=== PATIENT | female | born 1995 | race Caucasian/White ===

== ENCOUNTER 2017-08-06 13:44 | Inpatient (IN) | payer OTHER ==
[2017-08-06] MEDS ORDERED: Ibuprofen 800 MG TAB PO PRN (23:23)
[2017-08-06] MEDS ORDERED: Carboprost 250 MCG/ML AMP IM PRN (23:23)
[2017-08-06] MEDS ORDERED: Zolpidem Tartrate 5 MG TAB PO PRN (23:23)
[2017-08-06] MEDS ORDERED: HYDROcodone/Acetaminophen 5/325 mg Tablet PO PRN (23:23)
[2017-08-06] MEDS ORDERED: Acetaminophen 500 MG TAB PO PRN (23:23)
[2017-08-06] MEDS ORDERED: Misoprostol 200 MCG TAB PR PRN (23:23)
[2017-08-06] MEDS ORDERED: Lidocaine 1% (PF) 30 ML VIAL SC PRN (23:23)
[2017-08-06] MEDS ORDERED: Ondansetron HCl/PF 4 MG/2 ML Vial IVP PRN (23:23)
[2017-08-06] MEDS ORDERED: Diphenoxylate HCl/Atropine Tablet PO PRN (23:23)
[2017-08-06] MEDS ORDERED: Promethazine HCl 25 MG/ML VIAL IM PRN (23:23)
[2017-08-06 23:47] VITALS: BMI 30.7
[2017-08-06] MEDS: Lactated Ringer's 1,000 ML IV SCH (23:57)
[2017-08-07 01:03] LABS: Hematocrit 35.8 % (36.0-47.0); Mean Platelet Volume 8.6 fL (7.4-10.4); Red Blood Cell (RBC) Count 4.08 mill/uL (4.20-5.40); White Blood Cell (WBC) Count 9.6 thou/uL (4.8-10.8)
[2017-08-07] MEDS: LR 500 ML/Oxytocin 10 units 500 ML IV SCH ×2 (04:07→15:54)
[2017-08-07] MEDS: Lactated Ringer's 1,000 ML IV SCH ×3 (05:09→14:23)
--- NOTE | 2017-08-07 08:23 | PDOC.LDHP ---
Labor and Delivery H&P Chief complaint: scheduled induction HPI: 22yo at 40w3d by LMP here for elective IOL. Some slight pain with ctx, plans epidural Current gestational age (weeks): 40 Due date: 08/04/17 Dating criteria: last menstrual period Grav: 1 Para: 0 Current complications: none Abnormal US findings: No Past Medical History: denies Current medications: pre-sarita vitamins Previous surgical history: none Allergies/Adverse Reactions: Allergies Allergy/AdvReac Type Severity Reaction Status Date / Time No Known Allergies Allergy Verified 08/06/17 23:43 Social history: none - Physical Exam Vital signs reviewed and normal: yes General: NAD Heart: RRR Lungs: CTAB Abdomen: gravid Extremeties: no edema FHT: category 1 [place] contractions every: q3min - Vaginal Exam cm dilated: 3 Effacement: 90% Station: -2 - OB Labs Blood type: O RH: positive HIV: negative RPR: negative HEPSAg: negative 1 hour GCT: negative GBS: negative Additional Labs: RubImm - Assessment L&D Assessment: elective induction at term - Plan Plan: admit to L&D, labor augmentation if indicated, informed consent obtained, anesthesia consult for pain management
[2017-08-07] MEDS ORDERED: Fentanyl 4 mcg/Marc 0.1% Cadd 100 ML ONE (11:17)
[2017-08-07] MEDS ORDERED: diphenhydrAMINE HCl 50 MG/ML 1 ML VIAL IVP PRN (11:54)
[2017-08-07] MEDS ORDERED: Naloxone HCl 0.4 mg/ml Vial IVP PRN ×2 (11:54)
[2017-08-07] MEDS ORDERED: ePHEDrine/0.9% NaCl/PF SYRINGE 50 mg/10 ml SLOW IVP PRN (11:54)
[2017-08-07] MEDS ORDERED: Lactated Ringer's 500 ML IV PRN (11:54)
[2017-08-07] MEDS ORDERED: Acetaminophen 325 MG TAB PO PRN (11:54)
[2017-08-07] MEDS ORDERED: Ondansetron HCl/PF 4 MG/2 ML Vial IVP PRN ×2 (11:54→22:02)
[2017-08-07] MEDS ORDERED: Promethazine HCl 25 MG/ML VIAL IM PRN (11:54)
[2017-08-07] MEDS ORDERED: Eucerin (Mineral Oil/Petrolatum,White) 30 gm Jar TOP PRN (11:54)
[2017-08-07] MEDS: Misoprostol 100 MCG TAB VAG SCH ×3 (11:57→15:54)
[2017-08-07] MEDS ORDERED: Communication Order-Pharmacy FS SCH (12:00)
[2017-08-07] MEDS ORDERED: Fentanyl 4mcg/Marcaine 0.1% Cassette 100 ML EPIDURAL SCH (12:00)
[2017-08-07] MEDS ORDERED: Misoprostol 200 MCG TAB ONE (19:17)
[2017-08-07] MEDS: LR / Pitocin 40 units/1000 ml 1,000 ML IV PRN ×2 (19:19→22:17)
[2017-08-07] MEDS ORDERED: Milk Of Magnesia 30 ML UDCUP PO PRN (22:02)
[2017-08-07] MEDS ORDERED: Bisacodyl 10 MG SUPP PR PRN (22:02)
[2017-08-07] MEDS ORDERED: Lanolin Ointment 7 GM TUBE TOP PRN (22:02)
[2017-08-07] MEDS ORDERED: Benzocaine/Menthol 20-0.5% 60 ML CAN TOP PRN (22:02)
[2017-08-07] MEDS ORDERED: diphenhydrAMINE HCl 25 MG CAP PO PRN (22:02)
[2017-08-07] MEDS ORDERED: LR / Pitocin 40 units/1000 ml 1,000 ML IV SCH (22:02)
[2017-08-07] MEDS ORDERED: HYDROcodone/Acetaminophen 5/325 mg Tablet PO PRN ×2 (22:02)
[2017-08-07] MEDS ORDERED: Preparation H Ointment 28 GM TUBE PR PRN (22:02)
--- NOTE | 2017-08-08 | PDOC.OPDEL ---
OB Operative/Delivery Note Delivery Dr/Surgeon: Krupa Assist: n/a Pre-Delivery Diagnosis: elective induction Procedure/Post Delivery Dx: spontaneous vaginal delivery Weeks gestation: 40 Anesthesia: epidural - Findings A Sex: male - 5 min: 8 - 10 min: 9 - Additional Findings/Plan Placenta delivered: spontaneous Repaired Obstetrical Laceration: periurethral (bilateral, hemostatic, unrepaired ) Estimated blood loss: 200 Compilations/Other Findings: NC x1 reduced at perineum, Anterior shoulder left shoulder did not deliver with gentle downward traction, [facility] and suprapubic by RN delivered in < 30seconds. Infant moving all extremities equally bilaterally. Atony following placental delivery, resolved with bimanual massage, pitocin and cytotec 600mcg pr. Post delivery plan: routine recovery
[2017-08-08] MEDS: Misoprostol 100 MCG TAB VAG SCH ×2 (04:18→04:19)
[2017-08-08] MEDS: Ibuprofen 800 MG TAB PO SCH ×4 (04:19→22:00)
[2017-08-08] MEDS: Docusate (Surfak) 240 MG CAP PO SCH ×3 (05:29→22:02)
--- NOTE | 2017-08-08 08:36 | PDOC.PP ---
Post Progress Note Post Day #: 1 PO intake tolerated: yes Flatus: yes Ambulation: yes Vital Signs (12 hours) Temp Pulse Resp BP 08/08/17 02:50 98.3 F 97 20 122/75 08/07/17 23:45 98.2 F 101 H 14 119/68 08/07/17 22:45 99.2 F 102 H 14 107/54 L 08/07/17 21:45 98.9 F 92 20 124/66 Weight Weight 190 lb - Physical Examination General: NAD Cardiovascular: RRR Respiratory: clear to ausculation bilateral Abdominal: no distention, appropriately TTP Fundus firm & at: umb Extremities: negative homans (B) Skin: no rash Neurological: no gross focal deficits Psychiatric: normal affect Result Diagrams: 08/06/17 23:51 Additional Labs: Post Labs Hep Bs Antigen Non-Reactive S/CO (NonReactive) 08/06/17 23:51 (1) Term delivered Code(s): O80 - ENCOUNTER FOR FULL-TERM UNCOMPLICATED DELIVERY Status: Acute - Assessment/Plan VSSAF Doing well, Pain controlled, lochia appropriate Rh pos RImm Cont PP care, home tomorrow
[2017-08-08] MEDS: Prenatal Vitamin 1 TAB PO SCH (09:25)
[2017-08-08] MEDS: Ferrous Sulfate 325 MG TAB PO SCH ×2 (09:27→18:06)
[2017-08-09] MEDS: Ibuprofen 800 MG TAB PO SCH (05:26)
[2017-08-09 08:15] VITALS: BP 113/66; TEMP 98
[2017-08-09] MEDS ORDERED: Adacel (T-DAP) 0.5 ML VIAL IM ONE (09:00)
[2017-08-09] MEDS ORDERED: Docusate (Surfak) 240 MG CAP PO SCH (09:00)
[2017-08-09] MEDS: Ferrous Sulfate 325 MG TAB PO SCH (09:41)
[2017-08-09] MEDS: Prenatal Vitamin 1 TAB PO SCH (09:42)
[2017-08-09] MEDS: Docusate (Surfak) 240 MG CAP PO SCH (09:42)
--- NOTE | 2017-08-09 13:39 | PDOC.PP ---
Post Progress Note Post Day #: 2 PO intake tolerated: yes Flatus: yes Ambulation: yes Vital Signs (12 hours) Temp Pulse Resp BP 08/09/17 08:14 98.0 F 77 20 113/66 08/09/17 08:00 98.0 F 77 20 Weight Weight 190 lb - Physical Examination General: NAD Cardiovascular: no m/r/g Respiratory: clear to ausculation bilateral Abdominal: + bowel sounds, lochia (minimal rubra) Fundus firm & at: -2 Extremities: negative homans (B) Skin: no rash Neurological: no gross focal deficits Psychiatric: A&Ox3 Result Diagrams: 08/06/17 23:51 Additional Labs: Post Labs Hep Bs Antigen Non-Reactive S/CO (NonReactive) 08/06/17 23:51 - Assessment/Plan A: PPD #2 s/p with bilateral non-repaired periurethral with NML post exam. P: discharge home, continue OTC stool softeners, Continue PNV at home [address] Gentile
== END 2017-08-09 13:56 | disposition home or self-care (01) | DRG 775 ==
LOC: L&D 23:17 → 3SW 08-07 21:41
PROVIDERS: ADMIT Student in an Organized Health Care Education/Training Program; ATTEND Student in an Organized Health Care Education/Training Program
PROC: 10E0XZZ Delivery of Products of Conception, External Approach (ICD-10-PCS; principal; 2017-08-07)
PROC: 10907ZC Drainage of Amniotic Fluid, Therapeutic from Products of Conception, Via Natural or Artificial Opening (ICD-10-PCS; 2017-08-07)
PROC: 3E033VJ Introduction of Other Hormone into Peripheral Vein, Percutaneous Approach (ICD-10-PCS; 2017-08-07)
DX: O71.82 Other specified trauma to perineum and vulva (principal); O62.2 Other uterine inertia; Z3A.40 40 weeks gestation of pregnancy; Z37.0 Single live birth; O69.81X0 Labor and delivery complicated by cord around neck, without compression, not applicable or unspecified
CPT/HCPCS: 36415; 85027; 86780; 87340; J2210; J7120

== ENCOUNTER 2019-02-21 16:41 | Inpatient (IN) | payer OTHER ==
[2019-02-21 17:30] VITALS: BMI 30.3
--- NOTE | 2019-02-21 18:20 | PDOC.LDHP ---
Labor and Delivery H&P Chief complaint: contractions, other (elevated BP in clinic) HPI: 24 y/o at 39w4d, patient of Dr. Gentile, presents from clinic with elevated BP. She reports she had one elevated pressure, had a RENAE that is resolved. Patient also complains of ctx since she's been here. Denies VB, LOF or decreased FM. OB History Details: 1 term Current complications: none Past Medical History: None Current medications: pre- vitamins Previous surgical history: none Allergies/Adverse Reactions: Allergies Allergy/AdvReac Type Severity Reaction Status Date / Time No Known Allergies Allergy Verified 02/21/19 17:30 Social history: none - Physical Exam Vital signs reviewed and normal: yes General: NAD, resting Lungs: nonlabored breathing Abdomen: gravid Extremeties: no edema FHT: category 1 (140s, mod variability, + accels, no decels) [place] contractions every: q3 mins - Vaginal Exam cm dilated: 4 Effacement: 50% Station: -2 - Assessment L&D Assessment: term patient in labor - Plan Plan: admit to L&D, labor augmentation if indicated, GBS antibiotic prophylaxis , informed consent obtained, anesthesia consult for pain management (if desired)
[2019-02-21 18:42] LABS: #Lymphocytes 1.5 thou/uL (1.20-3.40); #Monocytes 0.5 thou/uL (0.11-0.59); %Basophils 0.4 % (0.0-1.0); %Eosinophils 0.3 % (0.0-10.0); %Lymphocytes 16.7 % (21.0-51.0); %Monocytes 5.5 % (0.0-10.0); %Neutrophils 77.1 % (42.0-75.0); Hemoglobin 10.6 g/dL (12.0-16.0); Mean Corpuscular HGB CONC 33.5 g/dL (32.0-36.0); Mean Corpuscular Volume 80.6 fL (78.0-98.0); Mean Platelet Volume 8.5 fL (7.4-10.4); Platelet Count 274 thou/uL (130-400); RBC Distribution Width 14.4 % (11.5-14.5); Red Blood Cell (RBC) Count 3.91 mill/uL (4.20-5.40); White Blood Cell (WBC) Count 9.1 thou/uL (4.8-10.8)
[2019-02-21 18:55] LABS: Creatinine, Urine 52.76 mg/dL (47-110)
[2019-02-21] MEDS ORDERED: Acetaminophen 500 MG TAB PO PRN (19:01)
[2019-02-21] MEDS ORDERED: Carboprost 250 MCG/ML AMP IM PRN (19:01)
[2019-02-21] MEDS ORDERED: Butorphanol Tartrate 1 MG/ML VIAL SLOW IVP PRN (19:01)
[2019-02-21] MEDS ORDERED: Ibuprofen 800 MG TAB PO PRN (19:01)
[2019-02-21] MEDS ORDERED: Lidocaine 1% (PF) 30 ML VIAL SC PRN (19:01)
[2019-02-21] MEDS ORDERED: Ondansetron PF 4 MG/2 ML Vial IVP PRN (19:01)
[2019-02-21] MEDS ORDERED: Misoprostol 200 MCG TAB PR PRN (19:01)
[2019-02-21] MEDS ORDERED: Diphenoxylate HCl/Atropine Tablet PO PRN ×2 (19:01)
[2019-02-21] MEDS ORDERED: HYDROcodone/Acetaminophen 5/325 mg Tablet PO PRN ×2 (19:01)
[2019-02-21] MEDS ORDERED: Promethazine HCl 25 MG/ML VIAL IM PRN (19:01)
[2019-02-21] MEDS ORDERED: NS / Oxytocin 40 units/1000ml 1,000 ML IV PRN (19:01)
[2019-02-21 19:04] LABS: ALT (SGPT) 8 U/L (8-55); AST (SGOT) 12 U/L (5-34); Albumin 3.6 g/dL (3.5-5.0); Alkaline Phosphatase 129 U/L (40-150); Anion Gap 13 mmol/L (10-20); BUN (Urea Nitrogen) 6 mg/dL (7.0-18.7); Bilirubin, Total 0.3 mg/dL (0.2-1.2); Calc. Creatinine Clearance 182 mL/min (70-130); Calcium 9.1 mg/dL (7.8-10.44); Carbon Dioxide 23 mmol/L (22-29); Chloride 104 mmol/L (98-107); Estimated GFR-MDRD Greater than 90; Globulin 2.9 g/dL (2.4-3.5); Glucose 76 mg/dL (70-105); Potassium 3.9 mmol/L (3.5-5.1); Protein, Total 6.5 g/dL (6.0-8.3); Sodium 136 mmol/L (136-145)
[2019-02-21] MEDS ORDERED: Penicillin G Potassium 5 MILL.UNITS in Sodium Chloride 0.9% 100 ML IVPB SCH (19:15)
[2019-02-21] MEDS ORDERED: NS w/ Oxytocin 10 units 500 ML IV SCH (19:15)
[2019-02-21 19:44] LABS: HBSAg Index 0.35 S/CO (0-0.99); Hep B Surf Ag Non-Reactive S/CO (NonReactive); Syphilis Antibody Nonreactive (Nonreactive); Syphilis Antibody Index 0.04 S/CO (<1.00 Non-Reactive)
[2019-02-21] MEDS: Lactated Ringer's 1,000 ML IV SCH (19:48)
[2019-02-21] MEDS: Penicillin G 2.5 MILL.units 2.5 MILL.UNITS in Premix Bag 1 BAG IVPB SCH (23:42)
[2019-02-22] MEDS ORDERED: Fentanyl 4 mcg/Bup 0.1% Cadd 100 ML ONE ×2 (00:56→09:32)
[2019-02-22] MEDS: Lactated Ringer's 1,000 ML IV SCH ×2 (01:59→05:53)
[2019-02-22] MEDS ORDERED: ePHEDrine/0.9% NaCl/PF SYRINGE 50 mg/10 ml SLOW IVP PRN (02:02)
[2019-02-22] MEDS ORDERED: Eucerin (Mineral Oil/Petrolatum,White) 30 gm Jar TOP PRN (02:02)
[2019-02-22] MEDS ORDERED: Acetaminophen 325 MG TAB PO PRN (02:02)
[2019-02-22] MEDS ORDERED: Lactated Ringer's 500 ML IV PRN (02:02)
[2019-02-22] MEDS ORDERED: Promethazine HCl 25 MG/ML VIAL IM PRN (02:02)
[2019-02-22] MEDS ORDERED: diphenhydrAMINE 50 MG/ML VIAL IVP PRN (02:02)
[2019-02-22] MEDS ORDERED: Ondansetron PF 4 MG/2 ML Vial IVP PRN ×2 (02:02→13:28)
[2019-02-22] MEDS ORDERED: Naloxone HCl 0.4 mg/ml Vial IVP PRN ×2 (02:02)
[2019-02-22] MEDS ORDERED: Fentanyl 4 mcg/Bupivacaine 0.1% Cassette 100 ML EPIDURAL SCH (02:15)
[2019-02-22] MEDS ORDERED: Communication Order-Pharmacy FS SCH (02:15)
[2019-02-22] MEDS: Penicillin G 2.5 MILL.units 2.5 MILL.UNITS in Premix Bag 1 BAG IVPB SCH ×3 (06:24→14:09)
--- NOTE | 2019-02-22 07:58 | PDOC.LDPN ---
Labor & Delivery Progress Note - Subjective Subjective: comfortable - Objective Vital signs reviewed and normal: yes General: NAD Uterine fundus: non tender Dilation: 6 Effacement: 75% Station: -1 FHT: category 1 AROM: clear fluid Plan: continue plan of care, pitocin for augmentation -: GBS positive s/p PCN x 2
--- NOTE | 2019-02-22 11:31 | PDOC.OPDEL ---
OB Operative/Delivery Note Delivery Dr/Surgeon: Krupa Assist: n/a Pre-Delivery Diagnosis: medically indicated induction Procedure/Post Delivery Dx: spontaneous vaginal delivery Weeks gestation: 39 Anesthesia: epidural - Findings A Sex: female Weight: 7 lb 3 oz - 1 min: 8 - 5 min: 9 - Additional Findings/Plan Placenta delivered: spontaneous Repaired Obstetrical Laceration: none Estimated blood loss: 328cc Compilations/Other Findings: NC x 2 tight, reduced at perineum Post delivery plan: routine recovery
[2019-02-22] MEDS ORDERED: Benzocaine-Menthol 82.5 ML CAN TOP PRN (13:28)
[2019-02-22] MEDS ORDERED: Bisacodyl 10 MG SUPP PR PRN (13:28)
[2019-02-22] MEDS ORDERED: Preparation H Ointment 28 GM TUBE PR PRN (13:28)
[2019-02-22] MEDS ORDERED: Milk Of Magnesia 30 ML UDCUP PO PRN (13:28)
[2019-02-22] MEDS ORDERED: HYDROcodone/Acetaminophen 5/325 mg Tablet PO PRN ×2 (13:28)
[2019-02-22] MEDS ORDERED: Lanolin Ointment 7 GM TUBE TOP PRN (13:28)
[2019-02-22] MEDS ORDERED: NS / Oxytocin 40 units/1000ml 1,000 ML IV SCH (13:28)
[2019-02-22] MEDS ORDERED: diphenhydrAMINE 25 MG CAP PO PRN (13:28)
[2019-02-22] MEDS: Ibuprofen 800 MG TAB PO SCH ×2 (14:12→21:56)
[2019-02-22] MEDS: Ferrous Sulfate 325 MG TAB PO SCH (16:37)
[2019-02-22] MEDS: Docusate Calcium (SURFAK) 240 MG CAP PO SCH (21:56)
[2019-02-23] MEDS: Ibuprofen 800 MG TAB PO SCH ×3 (05:37→21:22)
--- NOTE | 2019-02-23 07:29 | PDOC.PP ---
Post Progress Note Post Day #: 1 Subjective: 24 yo G2 now P2 pp day 1 after successful IOL and . Pt had elevated BP in clinic and was sent to L&D for monitoring/eval. After delivery BP has been well controlled. Denies headache, changes in vision, NVDC, ruq/epigastric pain, cp, sob. Pt reports she is doing well. PO intake tolerated: yes Flatus: yes Ambulation: yes Vital Signs (12 hours) Temp Pulse Resp BP Pulse Ox 02/23/19 05:30 97.8 F 64 18 114/66 02/23/19 00:05 97.9 F 72 18 110/59 L 02/22/19 20:25 98 02/22/19 20:08 98.2 F 75 18 117/70 98 Weight Weight 85.275 kg - Physical Examination General: NAD Cardiovascular: no m/r/g, RRR Respiratory: clear to auscultation bilaterally, non-labored breathing Abdominal: + bowel sounds, no distention, appropriately TTP Neurological: no gross focal deficits Psychiatric: normal affect Result Diagrams: 02/21/19 18:35 02/21/19 18:35 Additional Labs: Post Labs Blood Type O POSITIVE 02/21/19 19:18 Hep Bs Antigen Non-Reactive S/CO (NonReactive) 02/21/19 18:35 (1) Term delivered Code(s): O80 - ENCOUNTER FOR FULL-TERM UNCOMPLICATED DELIVERY Status: Acute - Assessment/Plan 1) PP day 1 - will continue to monitor pressures throughout the day, consider dc if BP stable today vs tomorrow - overall doing well, cont routine PP care Addendum - Attending - Attending Attestation Date/Time: 02/25/19 2529 I personally evaluated the patient and discussed the management with Dr. Sanchez I agree with the History, Examination, Assessment and Plan documented above with any addition or exceptions noted below.
[2019-02-23] MEDS ORDERED: Adacel (T-DAP) 0.5 ML SYRINGE IM ONE (09:00)
[2019-02-23] MEDS: Ferrous Sulfate 325 MG TAB PO SCH ×2 (09:09→17:17)
[2019-02-23] MEDS: Docusate Calcium (SURFAK) 240 MG CAP PO SCH ×2 (10:00→21:22)
[2019-02-23] MEDS: Prenatal Vitamin 1 TAB PO SCH (10:00)
[2019-02-24] MEDS: Ibuprofen 800 MG TAB PO SCH (05:51)
--- NOTE | 2019-02-24 07:05 | PDOC.PP ---
Post Progress Note Post Day #: 2 Subjective: Patient doing well. No significant overnight events. Tolerating PO. Ambulating. Passing flatus. PO intake tolerated: yes Flatus: yes Ambulation: yes Vital Signs (12 hours) Temp Pulse Resp BP 02/23/19 19:35 98.2 F 79 18 113/72 Weight Weight 85.275 kg - Physical Examination General: NAD Cardiovascular: no m/r/g, RRR Respiratory: clear to auscultation bilaterally, non-labored breathing Abdominal: + bowel sounds, lochia (minimal), no distention, appropriately TTP Fundus firm & at: below umbilicus Neurological: no gross focal deficits Psychiatric: A&Ox3, normal affect Result Diagrams: 02/21/19 18:35 02/21/19 18:35 Additional Labs: Post Labs Blood Type O POSITIVE 02/21/19 19:18 Hep Bs Antigen Non-Reactive S/CO (NonReactive) 02/21/19 18:35 (1) Term delivered Code(s): O80 - ENCOUNTER FOR FULL-TERM UNCOMPLICATED DELIVERY Status: Acute - Assessment/Plan 1) PPD #2 - BP's have remained well controlled - Routine PP care without complications - VSS - Plan for d/c home today Dispo: D/c home
[2019-02-24 09:07] VITALS: BP 131/79; TEMP 98
[2019-02-24] MEDS: Ferrous Sulfate 325 MG TAB PO SCH (09:08)
[2019-02-24] MEDS: Docusate Calcium (SURFAK) 240 MG CAP PO SCH (09:41)
[2019-02-24] MEDS: Prenatal Vitamin 1 TAB PO SCH (09:41)
== END 2019-02-24 09:55 | disposition home or self-care (01) | DRG 807 ==
LOC: L&D/OP 16:41 → L&D 19:14 → 3SW 02-22 13:53
PROVIDERS: ADMIT Student in an Organized Health Care Education/Training Program; ATTEND Student in an Organized Health Care Education/Training Program
PROC: 10907ZC Drainage of Amniotic Fluid, Therapeutic from Products of Conception, Via Natural or Artificial Opening (ICD-10-PCS; principal; 2019-02-22)
PROC: 10E0XZZ Delivery of Products of Conception, External Approach (ICD-10-PCS; 2019-02-22)
DX: O99.824 Streptococcus B carrier state complicating childbirth (principal); Z37.0 Single live birth; Z3A.39 39 weeks gestation of pregnancy; O75.89 Other specified complications of labor and delivery; R03.0 Elevated blood-pressure reading, without diagnosis of hypertension; O69.81X0 Labor and delivery complicated by cord around neck, without compression, not applicable or unspecified
CPT/HCPCS: 36415; 51702; 80053; 82570; 84156; 85025; 86780; 86850; 86900; 86901; 87340; 99285; J2540; J2590; J3490